=== PATIENT | female | born 1960 | race Caucasian/White ===

== ENCOUNTER 2017-12-02 10:05 | Emergency (ER) | payer MEDICAID ==
[~2017-12-02] VITALS: Ht 162.6 cm; Wt 109.5 kg
[~2017-12-02 10:05] MED LIST: METH-360 PO
[2017-12-02] MEDS ORDERED: LORazepam 1 MG tablet PO ONE (12:20)
[2017-12-02] MEDS ORDERED: CITA20TA16 PO ×2 (12:23→12:24)
[2017-12-02] MEDS ORDERED: LORA1TAB PO (12:23)
[2017-12-02 12:43] VITALS: BP 108/68
== END 2017-12-02 12:44 | disposition home or self-care (01) ==
LOC: ER 10:06
DX: F32.9 Major depressive disorder, single episode, unspecified (principal); G89.29 Other chronic pain; F12.10 Cannabis abuse, uncomplicated; F17.210 Nicotine dependence, cigarettes, uncomplicated; Z88.5 Allergy status to narcotic agent; Z79.899 Other long term (current) drug therapy; Z56.0 Unemployment, unspecified
CPT/HCPCS: 99284

== ENCOUNTER 2018-10-18 15:31 | Emergency (ER) | payer MEDICAID ==
[~2018-10-18] VITALS: Ht 162.6 cm; Wt 113.6 kg
[~2018-10-18 15:31] MED LIST changes: +CITA20TA16 PO
[2018-10-18] MEDS ORDERED: orphenadrine citrate 60mg/2ml inj. IM ONE (18:10)
[2018-10-18] MEDS ORDERED: ketorolac tromethamine 15mg/ml inj. IM ONE (18:10)
[2018-10-18] MEDS ORDERED: HYDR-3965 PO (18:27)
[2018-10-18 18:55] VITALS: BP 130/108
== END 2018-10-18 18:57 | disposition home or self-care (01) ==
LOC: ER 18:57
DX: S51.011A Laceration without foreign body of right elbow, initial encounter (principal); S61.411A Laceration without foreign body of right hand, initial encounter; G89.29 Other chronic pain; F12.90 Cannabis use, unspecified, uncomplicated; Z56.0 Unemployment, unspecified; Z88.5 Allergy status to narcotic agent; Z79.899 Other long term (current) drug therapy; W18.39XA Other fall on same level, initial encounter; Y93.89 Activity, other specified; Y92.89 Other specified places as the place of occurrence of the external cause; Y99.8 Other external cause status
CPT/HCPCS: 29105; 73080; 96372; 99283; J1885; J2360